=== PATIENT | female | born 1980 | race Caucasian/White ===

== ENCOUNTER 2017-03-20 14:58 | Emergency (ER) | payer BC ==
[2017-03-20 15:27] VITALS: O2SAT 96
--- NOTE | 2017-03-20 16:12 | ED.PDOC ---
History of Present Illness - General Chief Complaint: Fever Stated Complaint: fever, nausea, cough, back pain Time Seen by Provider: 03/20/17 15:23 Source: patient Exam Limitations: no limitations - History of Present Illness Initial Comments: The patient is a 36-year-old female presenting to the emergency room with multiple symptoms over the last 24-48 hours including cough, nasal congestion, backache, mild nausea, mild headache, fatigue. Flu is prevalent in the community at this time. She is not having any difficulty breathing. She is not in any acute distress. Timing/Duration: 24 hours Severity: moderate Improving Factors: nothing Worsening Factors: nothing Associated Symptoms: cough, fever/chills, loss of appetite, malaise Allergies/Adverse Reactions: Allergies NO KNOWN ALLERGY Allergy (Verified 02/15/13 13:43) Home Medications: Ambulatory Orders Acetaminophen W/ Codeine [Tylenol W/ CODEINE #3] 1 ea PO Q6H #30 12/26/14 Naproxen [Naprosyn] 500 mg PO BID #30 tab 12/26/14 Oseltamivir Capsule [Tamiflu] 75 mg PO BID 5 Days #10 capsule 03/20/17 Phentermine HCl 37.5 mg PO DAILY 03/20/17 Trazodone HCl 150 mg PO BEDTIME 03/20/17 Varenicline Tartrate [Chantix] 1 mg PO DAILY 03/20/17 Review of Systems - Review of Systems Constitutional: States: chills, fever, malaise EENTM: States: nose congestion, throat pain Respiratory: States: cough Cardiology: States: no symptoms reported Gastrointestinal/Abdominal: States: nausea Genitourinary: States: no symptoms reported Musculoskeletal: States: back pain Skin: States: no symptoms reported Neurological: States: headache Endocrine: States: no symptoms reported All other Systems: No Change from Baseline Past Medical History (General) - Patient Medical History Hx Seizures: No Hx Stroke: No Hx Dementia: No Hx Asthma: No Hx of COPD: No Hx Cardiac Disorders: No Hx Congestive Heart Failure: No Hx Pacemaker: No Hx Hypertension: No Hx Thyroid Disease: No Hx Diabetes: No Hx Gastroesophageal Reflux: No Hx Renal Disease: No Hx Cancer: No Hx Hepatitis C: No Surgical History: appendectomy - Vaccination History Hx Influenza Vaccination: No - Social History Hx Tobacco Use: Yes Hx Alcohol Use: Yes - Female History Patient : No Family Medical History - Family History Mother Family History: Unknown Physical Exam - Physical Exam General Appearance: Alert, No apparent distress Eye Exam: bilateral normal Ears, Nose, Throat: hearing grossly normal, nasal congestion, pharyngeal erythema Neck: non-tender, full range of motion Respiratory: lungs clear, normal breath sounds, no respiratory distress, no accessory muscle use Cardiovascular/Chest: normal peripheral pulses, regular rate, rhythm, no edema Peripheral Pulses: radial,right: 2+, radial,left: 2+, dorsalis pedis,right: 2+, dorsalis pedis,left: 2+ Gastrointestinal/Abdominal: non tender, soft Rectal Exam: deferred Back Exam: normal inspection, no CVA tenderness, no vertebral tenderness Extremity: normal range of motion, non-tender, normal inspection, no pedal edema , normal capillary refill 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 She has tested positive for flu B here today. She will be written for Tamiflu twice daily for the next 5 days. She needs to keep herself well hydrated. She can take Motrin or Aleve every 8 hours for the next couple of days to reduce body aches and fevers. ER warnings were given for any significant worsening. She is to contact her primary care doctor for prophylaxis for any of her other family members that they wish to treat. Departure - Departure Clinical Impression: Influenza Disposition: Discharge to Home or Self Care Condition: Fair Departure Forms: ED Discharge - Pt. Copy, Patient Portal Self Enrollment Instructions: Influenza Diet: regular diet Activity: increase activity as tolerated Referrals: RAMON AYON,ANTONIO Mcknight [Primary Care Provider] - 1-2 Weeks Prescriptions: Oseltamivir Capsule [Tamiflu] 75 mg PO BID 5 Days #10 capsule Home Medications: Ambulatory Orders Acetaminophen W/ Codeine [Tylenol W/ CODEINE #3] 1 ea PO Q6H #30 12/26/14 Naproxen [Naprosyn] 500 mg PO BID #30 tab 12/26/14 Oseltamivir Capsule [Tamiflu] 75 mg PO BID 5 Days #10 capsule 03/20/17 Phentermine HCl 37.5 mg PO DAILY 03/20/17 Trazodone HCl 150 mg PO BEDTIME 03/20/17 Varenicline Tartrate [Chantix] 1 mg PO DAILY 03/20/17 Additional Instructions: the patient is a 36-year-old female presenting with the flu. She has tested positive for flu B here today. She will be written for Tamiflu twice daily for the next 5 days. She needs to keep herself well hydrated. She can take Motrin or Aleve every 8 hours for the next couple of days to reduce body aches and fevers. ER warnings were given for any significant worsening. She is to contact her primary care doctor for prophylaxis for any of her other family members that they wish to treat.
[2017-03-20 16:44] VITALS: BP 118/76; TEMP 99.9
== END 2017-03-20 16:25 | disposition home or self-care (01) ==
LOC: ER 14:58
DX: J11.1 Influenza due to unidentified influenza virus with other respiratory manifestations (principal)

== ENCOUNTER 2018-03-12 14:23 | Emergency (ER) | payer BC ==
--- NOTE | 2018-03-12 14:49 | ED.PDOC ---
History of Present Illness - General Chief Complaint: General Stated Complaint: "Feeling faint", dizzy, weak Time Seen by Provider: 03/12/18 14:27 Source: patient Exam Limitations: no limitations - History of Present Illness Initial Comments: Noemí Delgado 37 y/o female stated that her fainting spell started Feb.27 as she was getting up from bed passed out for about one minute on the floor but on waking up drove her son to school had called her primary Md ordered some blood test but was called up today that specimen clotted and unable to do test.Then today had been having some dull headache and feeling lightheaded;denies N/V;no double vision or blurred vision,no fever/chills.No history of recent head injury.No dysarthria or muscle weakness. Timing/Duration: intermittent, other - 2 weeks Severity: moderate Improving Factors: nothing Worsening Factors: nothing Associated Symptoms: other - see hpi Allergies/Adverse Reactions: Allergies NO KNOWN ALLERGY Allergy (Verified 03/12/18 14:53) Home Medications: Ambulatory Orders Phentermine HCl 37.5 mg PO DAILY 03/20/17 Trazodone HCl 150 mg PO BEDTIME 03/20/17 Review of Systems - Review of Systems Constitutional: States: no symptoms reported EENTM: States: no symptoms reported Respiratory: States: no symptoms reported Cardiology: States: no symptoms reported Genitourinary: States: no symptoms reported Musculoskeletal: States: no symptoms reported Skin: States: no symptoms reported Neurological: States: see HPI Endocrine: States: no symptoms reported Hematologic/Lymphatic: States: no symptoms reported Past Medical History (General) - Patient Medical History Hx Seizures: No Hx Stroke: No Hx Dementia: No Hx Asthma: No Hx of COPD: No Hx Cardiac Disorders: No Hx Congestive Heart Failure: No Hx Pacemaker: No Hx Hypertension: No Hx Thyroid Disease: No Hx Diabetes: No Hx Gastroesophageal Reflux: No Hx Renal Disease: No Hx Cancer: No Hx Hepatitis C: No Surgical History: other - gastric sleeve;iud - Vaccination History Hx Influenza Vaccination: No - Social History Hx Tobacco Use: Yes Hx Alcohol Use: Yes - Female History Patient is a Female of Child Bearing Age (10 -59 yrs old): Yes Hx Last Menstrual Period: 03/12/18 Patient : No Family Medical History - Family History Mother Family History: Unknown Hx Family Cancer: Yes - skin-mom;DVT-mom Physical Exam - Physical Exam General Appearance: Alert, No apparent distress Eye Exam: bilateral normal Ears, Nose, Throat: hearing grossly normal, normal ENT inspection, normal pharynx Neck: non-tender, full range of motion, supple, normal inspection Respiratory: chest non-tender, lungs clear, normal breath sounds Cardiovascular/Chest: normal peripheral pulses, regular rate, rhythm, no murmur Peripheral Pulses: radial,right: 2+, radial,left: 2+ Gastrointestinal/Abdominal: normal bowel sounds, non tender, soft, no organomegaly Back Exam: normal inspection, no CVA tenderness, no vertebral tenderness Extremity: non-tender, normal inspection, no pedal edema, no calf tenderness Neurologic: no motor/sensory deficits, alert, oriented x 3 Skin Exam: normal color, warm/dry Lymphatic: no adenopathy Progress - Progress Progress: 03/12/18 15:14 Vital Signs - 8 hr 03/12/18 14:26 Temperature 98.0 F Pulse Rate [ 71 Left Radial] Respiratory 18 Rate Blood Pressure 122/76 [Left Arm] O2 Sat by Pulse 97 Oximetry - Results/Orders Results/Orders: 03/12/18 14:51 IV Care:Saline Lock per Protoc QSHIFT 03/12/18 15:00 EKG STAT 03/12/18 18:01 CTA Chest [CT] Stat Laboratory Results - last 24 hr 03/12/18 03/12/18 03/12/18 14:51 14:51 15:40 WBC RBC Hgb Hct MCV MCH MCHC RDW Plt Count MPV Absolute Neuts (auto) Absolute Lymphs (auto) Absolute Monos (auto) Absolute Eos (auto) Absolute Basos (auto) Neutrophils % Lymphocytes % Monocytes % Eosinophils % Basophils % PT INR PTT (SP) D-Dimer, Quantitative Sodium Potassium Chloride Carbon Dioxide Anion Gap BUN Creatinine BUN/Creatinine Ratio Random Glucose Serum Osmolality Lactic Acid Cancelled Calcium Magnesium Total Bilirubin Direct Bilirubin Indirect Bilirubin AST ALT Alkaline Phosphatase Creatine Kinase CK-MB (CK-2) CK-MB (CK-2) % Troponin I C-Reactive Protein Serum Total Protein Albumin Urine Color Urine Appearance Urine pH Ur Specific Valier Urine Protein Urine Glucose (UA) Urine Ketones Urine Blood Urine Nitrite Urine Bilirubin Urine Urobilinogen Ur Leukocyte Esterase Urine RBC Urine WBC Ur Epithelial Cells Urine Bacteria Urine Mucus Urine HCG, Qual Negative Urine Opiates Screen Negative Urine Barbiturates Negative Ur Phencyclidine Scrn Negative U Amphetamin/Meth Scrn Positive H U Benzodiazepines Scrn Negative U Cocaine Metab Screen Negative U Cannabinoids Screen Negative 03/12/18 03/12/18 03/12/18 15:40 16:04 17:10 WBC 8.1 RBC 4.56 Hgb 13.9 Hct 41.8 MCV 91.8 MCH 30.6 MCHC 33.4 RDW 14.1 Plt Count 139 MPV 10.6 H Absolute Neuts (auto) 4.00 Absolute Lymphs (auto) 3.30 Absolute Monos (auto) 0.50 Absolute Eos (auto) 0.20 Absolute Basos (auto) 0.10 Neutrophils % 49.4 Lymphocytes % 41.3 Monocytes % 6.5 Eosinophils % 2.0 Basophils % 0.8 PT 10.6 INR 1.06 PTT (SP) 25.7 D-Dimer, Quantitative Sodium 133 L Potassium 3.6 Chloride 104 Carbon Dioxide 20 L Anion Gap 12.6 BUN 15 Creatinine 0.60 BUN/Creatinine Ratio 25.0 H Random Glucose 84 Serum Osmolality 266.4 L Lactic Acid Calcium 8.6 Magnesium 2.0 Total Bilirubin 0.5 Direct Bilirubin 0.2 Indirect Bilirubin 0.3 AST 18 ALT 22 Alkaline Phosphatase 60 Creatine Kinase 47 CK-MB (CK-2) 0.4 CK-MB (CK-2) % Not Reportable Troponin I < 0.02 C-Reactive Protein 0.7 Serum Total Protein 6.9 Albumin 3.9 Urine Color Yellow Urine Appearance Clear Urine pH 6.0 Ur Specific Valier >= 1.030 Urine Protein Negative Urine Glucose (UA) Negative Urine Ketones 40 H Urine Blood Negative Urine Nitrite Negative Urine Bilirubin Negative Urine Urobilinogen 1.0 Ur Leukocyte Esterase Negative Urine RBC 0 Urine WBC 0-1 Ur Epithelial Cells 1-3 Urine Bacteria 0 Urine Mucus Moderate Urine HCG, Qual Urine Opiates Screen Urine Barbiturates Ur Phencyclidine Scrn U Amphetamin/Meth Scrn U Benzodiazepines Scrn U Cocaine Metab Screen U Cannabinoids Screen 03/12/18 17:10 WBC RBC Hgb Hct MCV MCH MCHC RDW Plt Count MPV Absolute Neuts (auto) Absolute Lymphs (auto) Absolute Monos (auto) Absolute Eos (auto) Absolute Basos (auto) Neutrophils % Lymphocytes % Monocytes % Eosinophils % Basophils % PT INR PTT (SP) D-Dimer, Quantitative 1.28 H* Sodium Potassium Chloride Carbon Dioxide Anion Gap BUN Creatinine BUN/Creatinine Ratio Random Glucose Serum Osmolality Lactic Acid Calcium Magnesium Total Bilirubin Direct Bilirubin Indirect Bilirubin AST ALT Alkaline Phosphatase Creatine Kinase CK-MB (CK-2) CK-MB (CK-2) % Troponin I C-Reactive Protein Serum Total Protein Albumin Urine Color Urine Appearance Urine pH Ur Specific Valier Urine Protein Urine Glucose (UA) Urine Ketones Urine Blood Urine Nitrite Urine Bilirubin Urine Urobilinogen Ur Leukocyte Esterase Urine RBC Urine WBC Ur Epithelial Cells Urine Bacteria Urine Mucus Urine HCG, Qual Urine Opiates Screen Urine Barbiturates Ur Phencyclidine Scrn U Amphetamin/Meth Scrn U Benzodiazepines Scrn U Cocaine Metab Screen U Cannabinoids Screen Discuss all test result with patient that blood head ct was normal as well as his blood work EXCEPT for HER D-Dimer which was slightly elevated explained to her that we need to get a CTA-chest on her to check for blood clots in her lungs but she was a difficult stick and was stuck 9 x and does not want further angiocath-denies chest pain symptoms,sob,leg swelling or prolonged immobilization or recent surgery requiring prolonged immobilization wants to come back if symptoms worsens.Also had positive meth on urine but patient taking phentermine as noted on her med list. - EKG/XRAY/CT EKG: Sinus, no ST T wave changes Comments: HR-61 Departure - Departure Clinical Impression: Dizziness, History of fainting of unknown cause Headache Qualifiers: Headache type: unspecified Headache chronicity pattern: unspecified pattern Intractability: not intractable Qualified Code(s): R51 - Headache Time of Disposition: 18:24 Disposition: Discharge to Home or Self Care Condition: Good Departure Forms: ED Discharge - Pt. Copy, Patient Portal Self Enrollment Instructions: Near Fainting (DC), Near Fainting, Syncope (Fainting) Referrals: RAMON AYON,ANTONIO Mcknight [Primary Care Provider] - 1-2 Weeks Home Medications: Ambulatory Orders Phentermine HCl 37.5 mg PO DAILY 03/20/17 Trazodone HCl 150 mg PO BEDTIME 03/20/17 Additional Instructions: RETURN TO EMERGENCY ROOM IF SYMPTOMS WORSENS otherwise NEED TO FOLLOW UP WITH PRIMARY Md in AM for RE-CHECK.
[2018-03-12] MEDS ORDERED: LACTATED RINGERS 1,000 ML IVS ONE (14:51)
[2018-03-12 14:53] VITALS: TEMP 98
--- NOTE | 2018-03-12 16:05 | CT ---
EXAM DESCRIPTION: CT-Head CLINICAL HISTORY: headache,dizziness,syncope COMPARISON: None available TECHNIQUE: Multiple axial images of the head without contrast. Multiplanar reformatted images. This exam was performed according to our departmental dose-optimization program, which includes automated exposure control, adjustment of the mA and/or kV according to patient size and/or use of iterative reconstruction technique. FINDINGS: There is no CT evidence of intracranial hemorrhage, mass effect, or large territory infarction. There is an 8 mm hypodensity in the right basal ganglia which is likely a prominent perivascular space versus less likely an age-indeterminate lacunar infarct. The brain parenchyma and ventricles are otherwise normal. There are no abnormal extra-axial fluid collections. Vascular structures are unremarkable. There is no acute calvarial defect. The visualized paranasal sinuses and the mastoids are clear. IMPRESSION: 1. No CT evidence of hemorrhage or mass effect. 2. Prominent perivascular space versus small age-indeterminate lacunar infarct in the right basal ganglia. If there is concern for an acute or subacute infarct, MRI may further characterize. Electronically signed by: Ace Tang MD 03/12/2018 4:04 PM [facility]
[2018-03-12 18:20] VITALS: BP 136/93; O2SAT 99
== END 2018-03-12 18:32 | disposition home or self-care (01) ==
LOC: ER 14:23
DX: R42 Dizziness and giddiness (principal); R51 Headache; Z87.891 Personal history of nicotine dependence
CPT/HCPCS: 70450; 80048; 80076; 80307; 81001; 81025; 82550; 82553; 84484; 85025; 85379; 85610; 85730; 86140; 93005; J7120

== ENCOUNTER 2018-10-29 23:16 | Emergency (ER) | payer BC ==
[2018-10-29] MEDS ORDERED: ALUM & MAG HYDROX-SIMETHICONE 30 ML, LIDOCAINE VISCOUS 2% 15 ML PO ONE ×2 (23:40)
--- NOTE | 2018-10-29 23:43 | ED.PDOC ---
History of Present Illness - General Chief Complaint: Abdominal Pain Stated Complaint: abdominal pain Time Seen by Provider: 10/29/18 23:31 Information Source: patient - History of Present Illness Initial Comments: 37 yo F with PMH sig for gastric sleeve in [place] one year ago who presents for diffuse cramping/sharp abd pain, onset [employer] after eating a grilled cheese, resolved at this time, has had similar episode of the past several months, last episode a month ago after eating something fatty/greasy. Tonight she endorsees associated n/v x4 episodes. Chronic constipation, passing gas, having BM's. D enies f/c, CP, SOB, hematemesis, melena, hematochezia, urinary sx, vag sx. Abdominal Pain Onset Location: generalized abdomen Pain Radiation: no radiation Review of Systems - Review of Systems Constitutional: Denies: chills, fever Respiratory: Denies: orthopnea, short of breath Cardiology: Denies: chest pain, edema, palpitations Gastrointestinal/Abdominal: States: abdominal pain, constipation, nausea, vomiting. Denies: diarrhea Genitourinary: Denies: dysuria, frequency, hematuria Musculoskeletal: Denies: back pain Neurological: Denies: headache, numbness Endocrine: Denies: increased hunger, increased thirst, increased urine Past Medical History (General) - Patient Medical History Hx Seizures: No Hx Stroke: No Hx Dementia: No Hx Asthma: No Hx of COPD: No Hx Cardiac Disorders: No Hx Congestive Heart Failure: No Hx Pacemaker: No Hx Hypertension: No Hx Thyroid Disease: No Hx Diabetes: No Hx Gastroesophageal Reflux: No Hx Renal Disease: No Hx Cancer: No Hx Hepatitis C: No - Vaccination History Hx Tetanus, Diphtheria Vaccination: No Hx Influenza Vaccination: No Hx Pneumococcal Vaccination: No - Social History Hx Tobacco Use: Yes Hx Alcohol Use: Yes - Activities of Daily Living Hospice Agency (if applicable):: None - Female History Patient is a Female of Child Bearing Age (10 -59 yrs old): Yes Hx Last Menstrual Period: 10/25/18 Patient : No - Triage Comment ED Triage Comment: pt ambulated without difficulty to er bed 5. pt voices that she has generalized upper abdmoninal pain that originated about 25 minutes [employer]. pt voices eating a grilled cheese this evening causing her stomach to start hurting. pt had gastric sleeve done 1 year ago. pt voices nausea, vomiting bile 4x within the last 25minutes. Family Medical History - Family History Mother Family History: Unknown Living Status: Still Living Hx Family Cancer: Yes - skin-mom;DVT-mom Physical Exam - Physical Exam General Appearance: Alert, Well Developed, Well Hydrated, Well Nourished Neck: non-tender, full range of motion, supple Respiratory: chest non-tender, lungs clear, normal breath sounds, no respiratory distress, no accessory muscle use Cardiovascular/Chest: normal peripheral pulses, regular rate, rhythm, no edema, no gallop, no JVD, no murmur Peripheral Pulses: No deficit Gastrointestinal/Abdominal: normal bowel sounds, non tender, soft, no organomegaly, no pulsatile mass, other - Discomfort Left side Back Exam: no CVA tenderness Extremity: normal range of motion, normal inspection Skin Exam: normal color, warm/dry Progress - Progress Progress: 10/30/18 00:25 Rechecked pt, doing well, no pain, no nausea at this time. 10/30/18 01:16 I have explained and reviewed all results with the pt. Lisa po, pain free, declines prescription for zofran, discussed OTC constipation medication. I explained that emergent conditions may arise and to return to the ER for new, worsening, or any persistent conditions. I've explained the importance of f/u for recheck. All questions and concerns addressed at this time. Pt understands a nd agrees with plan. Pt well appearing, NAD, is stable for discharge. Ginger Nance MD Emergency Medicine Physician Billing Number [id number] - Results/Orders Results/Orders: CT abd/pelvis with IV contrast: IMPRESSION: 1. No CT evidence of acute process of the abdomen. Electronically signed by: Rodger Gonzalez MD 10/30/2018 12:58 AM CDT 10/29/18 23:39 Hold Metformin x 48Hrs [id number] 10/29/18 23:45 EKG STAT Laboratory Results - last 24 hr 10/29/18 10/29/18 10/29/18 23:42 23:42 23:42 WBC 8.6 RBC 4.13 L Hgb 13.0 Hct 38.3 MCV 92.9 MCH 31.4 H MCHC 33.8 RDW 13.6 Plt Count 164 MPV 10.2 Absolute Neuts (auto) 4.00 Absolute Lymphs (auto) 3.70 H Absolute Monos (auto) 0.60 Absolute Eos (auto) 0.20 Absolute Basos (auto) 0.10 Neutrophils % 45.9 Lymphocytes % 42.9 Monocytes % 7.5 Eosinophils % 2.7 Basophils % 1.0 Sodium 139 Potassium 3.7 Chloride 109 Carbon Dioxide 22 Anion Gap 11.7 L BUN 18 Creatinine 0.73 BUN/Creatinine Ratio 24.7 H Random Glucose 95 Serum Osmolality 279.2 Calcium 9.1 Total Bilirubin 0.3 AST 19 ALT 19 Alkaline Phosphatase 49 Serum Total Protein 7.1 Albumin 3.7 Globulin 3.4 Albumin/Globulin Ratio 1.1 Lipase 33 Serum HCG, Qual Negative - EKG/XRAY/CT EKG: Sinus, no ST T wave changes Comments: Right axis Departure - Departure Clinical Impression: Acute abdominal pain Nausea & vomiting Qualifiers: Vomiting type: unspecified Vomiting Intractability: non-intractable Qualified Code(s): R11.2 - Nausea with vomiting, unspecified Time of Disposition: :13 Disposition: Discharge to Home or Self Care Health Concerns: Condition: Stable Departure Forms: ED Discharge - Pt. Copy, Patient Portal Self Enrollment Instructions: DI for Abdominal Pain-Adult Referrals: RAMON ORNAMENTAL BRICK INSTALLER,ANTONIO Mcknight [Primary Care Provider] - 1-5 Days Home Medications: Ambulatory Orders Phentermine HCl 37.5 mg PO DAILY 03/20/17 Trazodone HCl 150 mg PO BEDTIME 03/20/17 Comments: Follow up: [facility] As needed, if symptoms worsen
[2018-10-29] MEDS ORDERED: LIDOCAINE HCL 2% (MOUTH-THROAT) 15 ML UD ONE (23:48)
[2018-10-29] MEDS ORDERED: ALUM & MAG HYDROX-SIMETHICONE 30 ML UD ONE (23:48)
--- NOTE | 2018-10-30 01:00 | CT ---
EXAM: CT abdomen and pelvis with contrast. INDICATION: Abdominal pain, acute. TECHNIQUE: Contiguous axial CT images of the abdomen and pelvis. Intravenous contrast: Present. Oral contrast: Absent. DLP 1079 mGy-cm. This exam was performed according to our departmental dose-optimization program, which includes automated exposure control, adjustment of the mA and/or kV according to patient size and/or use of iterative reconstruction technique. COMPARISON: 06/15/2014. FINDINGS: Lower chest: Partially imaged. Lung bases: Unremarkable. Cardiac apex: Unremarkable. Solid abdominal viscera: Liver: Unremarkable. Gallbladder: Unremarkable. Pancreas: Unremarkable. Spleen: Unremarkable. Adrenal glands: Unremarkable. Right kidney: No hydronephrosis. Left kidney: No hydronephrosis. Urinary bladder: Unremarkable. Abdominal aorta: Unremarkable. Peritoneal: Free fluid: None. Free air: None. Other: No pathologic sized lymph nodes in the upper abdomen. Bowel: Stomach: Postsurgical changes Small bowel: Unremarkable. Appendix: Not uniquely identified, however there are no pericecal inflammatory changes. Colon: Unremarkable. Rectum: Unremarkable. Uterus: Unremarkable. Bones: There are chronic bilateral L5 pars defects with grade 1-2 anterolisthesis of L5 over S1. IMPRESSION: 1. No CT evidence of acute process of the abdomen. Electronically signed by: Rodger Gonzalez MD 10/30/2018 12:58 AM CDT
[2018-10-30 01:22] VITALS: BP 116/69; TEMP 98.1; O2SAT 100
== END 2018-10-30 01:23 | disposition home or self-care (01) ==
LOC: ER 23:16
DX: R10.10 Upper abdominal pain, unspecified (principal); R11.2 Nausea with vomiting, unspecified; Z98.84 Bariatric surgery status; Z87.891 Personal history of nicotine dependence